=== PATIENT | female | born 1995 | race Caucasian/White ===

== ENCOUNTER 2017-04-21 08:21 | Inpatient (IN) | payer MEDICAID ==
[2017-04-21] VITALS (120 sets, daily range): BP systolic 51–162; BP diastolic 25–141; PULSE 63–153; RESP 16–20; TEMP 97.8–98.7
[~2017-04-21] VITALS: Ht 160 cm; Wt 94.3 kg
[2017-04-21] MEDS ORDERED: LIDOCAINE HCL 1% 50 ML VIAL INFIL PRN (10:15)
[2017-04-21] MEDS ORDERED: MINERAL OIL 10 ML VIAL TOPICAL PRN (10:15)
[2017-04-21] MEDS ORDERED: SODIUM CHLORID 0.9% 500 ML INJ 500 ML IV PRN (10:15)
[2017-04-21] MEDS ORDERED: LIDOCAINE HCL 1% 50 ML VIAL I-DERMAL PRN (10:15)
[2017-04-21] MEDS ORDERED: LACTATED RINGER'S 1000 ML INJ 1,000 ML IV PRN (10:15)
[2017-04-21] MEDS ORDERED: ceFAZolin 2 GM PREMIX 50 ML IV ONE (10:15)
[2017-04-21] MEDS ORDERED: CITRIC ACID-SODIUM CITRATE LIQ 30 ML UDC PO SCH (10:15)
[2017-04-21] MEDS ORDERED: OXYTOCIN 30 UNITS-500ML PREMIX 500 ML IV ONE (10:15)
[2017-04-21] MEDS ORDERED: SODIUM CHLOR 0.9% 1000 ML INJ 1,000 ML IV PRN (10:35)
[2017-04-21] MEDS: LACTATED RINGER'S 1000 ML INJ 1,000 ML IV SCH ×2 (11:05→17:54)
[2017-04-21 11:06] LABS: BACTERIA, URINE RARE /hpf; BLOOD, URINE TRACE (NEG); COMMENT (UR) CULT NOT INDICATED; CULTURE IF INDICATED CULT NOT INDICATED; GLUCOSE,URINE NEG (NEG); KETONE, URINE TRACE mg/dL (NEG); MUCUS URINE FEW /lpf (OCC); NITRITE,URINE NEG (NEG); PH, URINE 6.5 (5.0-8.5); SQUAMOUS EPITHELIAL CELL URINE 3 /hpf (0-5); URINE COLOR LIGHT-YELLOW (YELLW/STRAW)
[2017-04-21 11:17] LABS: AUTOMATED NEUTROPHIL # 10.9 TH/MM3 (1.8-7.7); BASOPHIL % 0.1 % (0.0-2.0); EOSINOPHIL % 0.2 % (0.0-4.0); HEMATOCRIT 36.5 % (35.0-46.0); HEMO FLAGS DIFF FINAL; LYMPH % 14.5 % (9.0-44.0); MEAN CELL VOLUME 84.8 FL (80.0-100.0); MEAN CORPUSCULAR HGB CONC 34.2 % (32.0-36.0); NEUT % 79.2 % (16.0-70.0); PLATELET COUNT 257 TH/MM3 (150-450); RED BLOOD COUNT 4.31 MIL/MM3 (4.00-5.30); RED CELL DISTRIBUTION WIDTH 14.5 % (11.6-17.2); WHITE BLOOD COUNT 13.8 TH/MM3 (4.0-11.0)
[2017-04-21] MEDS ORDERED: fentaNYL 2MCG-BUPIV 0.125% INJ 100 ML ONE ×3 (11:27→17:41)
--- NOTE | 2017-04-21 11:27 | HHI.HP ---
History & Physical H&P HPI HPI Chief Complaint Contractions Date Seen: Apr 21, 2017 Time Seen: 09:35 Travel History International Travel<30 Days: No Contact w/Intl Traveler<30Days: No Known Affected Area: No History of Present Illness HPI 21-year-old at 39/5 weeks gestation presenting for contractions. Began this morning, progressed in intensity and severity towards time of presentation , and currently they're about every 3-5 minutes and very strong. Described as lower pelvic pressure/pain. Denies vaginal bleeding, leakage of fluid. Feels positive movement. Denies chest pain, shortness of breath, fevers/chills, dysuria, nausea/vomiting. History (Limited) History Past Medical History Narrative Medical Intermittent asthma, but has not used albuterol inhaler for many years Obstetric History Obstetric History First Past Surgical History Surgical History: No Previous Surgery Family History Family History: Negative Social History Alcohol Use: No Tobacco Use: No Substance Abuse: No Allergies-Medications Allergies-Medications (Allergen,Severity, Reaction): Coded Allergies: Augmentin (Verified Allergy, Unknown, hives, 04/21/17) Penicillin (Verified Allergy, Unknown, 04/21/17) ROS Review of Systems Except as stated in HPI: all other systems reviewed are Neg Physical Exam Physical Exam Vital Signs Date Time Temp Pulse Resp B/P Pulse Ox O2 Delivery O2 Flow Rate FiO2 04/21/17 11:06 20 04/21/17 11:05 85 04/21/17 11:00 74 Narrative GENERAL: Well-nourished, well-developed patient. SKIN: Warm and dry. HEAD: Normocephalic and atraumatic. EYES: No scleral icterus. No injection or drainage. ENT: No nasal drainage noted. Mucous membranes pink. Airway patent. NECK: Supple, trachea midline. No JVD. CARDIOVASCULAR: Regular rate and rhythm without murmurs, gallops, or rubs. RESPIRATORY: Breath sounds equal bilaterally. No accessory muscle use. BREASTS: Bilateral exam showed no masses , no retractions, no nipple discharge. ABDOMEN/GI: Abdomen soft, non-tender, bowel sounds present, no rebound, no guarding GENITOURINARY: External Genitalia: intact and normal in appearance BUS glands: normal Cervix: midposition Dilatation: 3 Effacement: 80 Station: -2 Presentation: Vertex Membranes: Intact Uterine Contractions: Regular every 3-5 mins FHT's: Category: 1 Baseline: 120 Reactive: Y Variability: moderate Decels: N EXTREMITIES: No cyanosis or edema. BACK: Nontender without obvious deformity. No CVA tenderness. NEUROLOGICAL: Awake and alert. Motor and sensory grossly within normal limits. Five out of 5 muscle strength in all muscle groups. Normal speech. Data Data Data Vital Signs Reviewed: Yes Orders Ob (2e) Additional Admit Info (04/21/17 10:14) Admit To Inpatient (04/21/17 ) Vital Signs (Adult) .Per protocol (04/21/17 10:15) Activity Oob Ad April (04/21/17 10:15) Heart (04/21/17 10:15) Amnioinfusion (04/21/17 10:15) Urinary Catheter Management .ONCE (04/21/17 10:15) Diet Liquid (04/21/17 Lunch) Lactated Ringer's 1000 Ml Inj (Lr 1000 M (04/21/17 10:15) Lactated Ringer's 1000 Ml Inj (Lr 1000 M (04/21/17 10:15) Sodium Chlorid 0.9% 500 Ml Inj (Ns 500 M (04/21/17 10:15) Sodium Chlor 0.9% 1000 Ml Inj (Ns 1000 M (04/21/17 10:35) Lidocaine 1% Inj (50 Ml) (Xylocaine 1% I (04/21/17 10:15) Citric Acid-Sodium Citrate Liq (Bicitra (04/21/17 10:15) Fentanyl Inj (Fentanyl Inj) (04/21/17 10:15) Fentanyl Inj (Fentanyl Inj) (04/21/17 10:15) Cefazolin 2 Gm Premix (Ancef 2 Gm Premix (04/21/17 10:15) Cefazolin Inj (Ancef Inj) (04/21/17 15:00) Complete Blood Count With Diff (04/21/17 10:15) Hold Clot (04/21/17 10:15) Abo/Rh Blood Type (04/21/17 10:15) Urinalysis - C+S If Indicated (04/21/17 10:15) Resp Oxygen Non Rebreathe Mask (04/21/17 ) ^ Epidural / Intrathecal Infus (04/21/17 10:15) Oxytocin 30 Units-500ml Premix (Pitocin (04/21/17 10:15) Lidocaine 1% Inj (50 Ml) (Xylocaine 1% I (04/21/17 10:15) Light Mineral Oil (Muri-Lube Oil) (04/21/17 10:15) Inpatient Certification (04/21/17 ) Labs Laboratory Tests Test 04/21/17 04/21/17 08:35 10:37 Urine Color LIGHT-YELLOW Urine Turbidity CLEAR Urine pH 6.5 Urine Specific [place] 1.009 Urine Protein NEG Urine Glucose (UA) NEG Urine Ketones TRACE Urine Occult Blood TRACE Urine Nitrite NEG Urine Bilirubin NEG Urine Urobilinogen LESS THAN 2.0 Urine Leukocyte Esterase TRACE Urine RBC LESS THAN 1 Urine WBC 2 Urine Squamous Epithelial 3 Cells Urine Bacteria RARE Urine Mucus FEW Microscopic Urinalysis Comment CULT NOT INDICATED White Blood Count 13.8 Red Blood Count 4.31 Hemoglobin 12.5 Hematocrit 36.5 Mean Corpuscular Volume 84.8 Mean Corpuscular Hemoglobin 29.0 Mean Corpuscular Hemoglobin 34.2 Concent Red Cell Distribution Width 14.5 Platelet Count 257 Mean Platelet Volume 8.3 Neutrophils (%) (Auto) 79.2 Lymphocytes (%) (Auto) 14.5 Monocytes (%) (Auto) 6.0 Eosinophils (%) (Auto) 0.2 Basophils (%) (Auto) 0.1 Neutrophils # (Auto) 10.9 Lymphocytes # (Auto) 2.0 Monocytes # (Auto) 0.8 Eosinophils # (Auto) 0.0 Basophils # (Auto) 0.0 CBC Comment DIFF FINAL Differential Comment MDM [facility] Medical Record Reviewed: Yes Narrative Course / MDM 21-year-old at 39/5 weeks gestation in labor #1 IUP Category 1 tracing, reassuring - Continuous monitoring #2 GBS positive Intrapartum metabolic prophylaxis with cefazolin #3 labor Membrane is not ruptured, cervix dilated to 3 cm from 1 cm in office last week - Admit to labor and delivery - Patient desires epidural - Routine antepartum care dw Dr. Matos Diagnosis Diagnosis: Primary Impression: Normal labor Serg Mackey MD R1 Apr 21, 2017 11:27 Serg Mackey MD R1 Apr 21, 2017 11:27
[2017-04-21] MEDS ORDERED: OXYTOCIN 30 UNITS/NS 500ML PREMIX IV SCH (13:15)
[2017-04-21] MEDS ORDERED: MEASLES, MUMPS, RUBELLA VACCINE 0.5 ML VIAL SQ ONE (16:00)
[2017-04-21] MEDS ORDERED: DIPHTH/TETANUS/ACEL PERTUSSIS (BOOSTER) 0.5 ML VIAL/PFS IM ONE (16:00)
[2017-04-21] MEDS ORDERED: PENICILLIN G POT 5,000,000 UNITS/NS 100 ML(Mini-Bag Plus) IV ONE ×2 (17:00)
[2017-04-21] MEDS ORDERED: SODIUM CHLORIDE 0.9% FLUSH 10 ML FLUSH IV FLUSH PRN (19:45)
[2017-04-21] MEDS ORDERED: ALUMINUM/MAGNESIUM/SIMETH 30 ML CUP PO PRN (19:45)
[2017-04-21] MEDS ORDERED: ZOLPIDEM TARTRATE 5 MG TAB PO PRN (19:45)
[2017-04-21] MEDS ORDERED: ACETAMINOPHEN 325 MG TAB PO PRN (19:45)
[2017-04-21] MEDS ORDERED: ONDANSETRON ODT 4 MG TAB PO PRN (19:45)
[2017-04-21] MEDS ORDERED: DOCUSATE SODIUM 50 MG/SENNA 8.6 MG TAB PO PRN (19:45)
[2017-04-21] MEDS ORDERED: WITCH HAZEL 50%/GLYCERIN 12.5% 40 PAD JAR TOPICAL PRN (19:45)
[2017-04-21] MEDS ORDERED: BENZOCAINE 20% TOPICAL SPRAY 60 ML CAN TOPICAL PRN (19:45)
[2017-04-21] MEDS ORDERED: oxyCODONE/ACETAMINOPHEN 5 MG/325 MG TAB PO PRN (19:45)
--- NOTE | 2017-04-21 19:46 | PD.OB.DELI ---
Delivery Date: Apr 21, 2017 Anesthesia: Epidural Episiotomy: None Vaginal Delivery: Normal Presentation: Occiput anterior Nuchal Cord: None Delayed cord clamping (45 sec): Yes : Female One Minute : 9 Five Minute : 9 Weight: 3421g Placenta: Spontaneous delivery, Intact, 3 vessel cord Laceration: 1 deg (5 o'clock and 7 o'clock) Repair: Vicryl running Additional Information EBL 250cc Baby Kenna! Dottie Tran MD R2 Apr 21, 2017 19:46
[2017-04-21] MEDS ORDERED: PENICILLIN G POT 2,500,000 UNITS/NS 100 ML IV SCH ×2 (21:00)
[2017-04-21] MEDS: SODIUM CHLORIDE 0.9% FLUSH 10 ML FLUSH IV FLUSH SCH (21:00)
[2017-04-21] MEDS: IBUPROFEN 600 MG TAB PO PRN (21:55)
[2017-04-21] MEDS: oxyCODONE/ACETAMINOPHEN 5 MG/325 MG TAB PO PRN (21:55)
[2017-04-22] MEDS: oxyCODONE/ACETAMINOPHEN 5 MG/325 MG TAB PO PRN ×3 (05:09→21:16)
[2017-04-22] MEDS: IBUPROFEN 600 MG TAB PO PRN ×3 (05:10→21:15)
--- NOTE | 2017-04-22 07:59 | HHI.OB ---
Subjective Post Day: 1 Remarks Doing well, pain is controlled. Bleeding is fine. Taking motrin and percocet Objective Vitals/I&O Vital Signs Date Time Temp Pulse Resp B/P Pulse Ox O2 Delivery O2 Flow Rate FiO2 04/21/17 22:43 98.7 88 16 98/62 04/21/17 22:20 18 04/21/17 22:20 98.3 04/21/17 22:16 96 130/69 04/21/17 22:05 18 04/21/17 22:01 104 114/65 04/21/17 21:50 16 04/21/17 21:48 70 118/71 04/21/17 21:46 51/25 04/21/17 21:46 102 04/21/17 21:02 18 04/21/17 21:01 78 111/59 04/21/17 20:50 18 04/21/17 20:45 93 106/54 04/21/17 20:30 131 104/76 04/21/17 20:20 18 04/21/17 20:15 116 114/81 04/21/17 20:05 18 04/21/17 20:00 115 115/69 04/21/17 20:00 98.3 18 04/21/17 19:58 113 114/89 04/21/17 19:25 150 04/21/17 19:20 153 04/21/17 19:15 123 04/21/17 19:05 128 04/21/17 19:00 122 04/21/17 18:45 18 04/21/17 18:40 130 04/21/17 18:35 131 04/21/17 18:30 135 04/21/17 18:30 132 115/63 04/21/17 18:15 20 04/21/17 18:10 127 04/21/17 18:05 130 04/21/17 18:00 128 115/54 04/21/17 18:00 132 04/21/17 17:58 18 04/21/17 17:55 128 04/21/17 17:50 129 04/21/17 17:45 131 04/21/17 17:30 138 04/21/17 17:30 142 128/75 04/21/17 17:25 129 04/21/17 17:20 121 04/21/17 17:15 137 7/6/17 17:15 135 04/21/17 17:10 127 04/21/17 17:10 128 04/21/17 17:10 127 04/21/17 17:05 138 04/21/17 17:05 141 04/21/17 17:00 114 04/21/17 17:00 111 04/21/17 17:00 111 141/72 04/21/17 16:29 98.4 04/21/17 16:15 91 04/21/17 16:15 94 04/21/17 16:01 93 111/63 04/21/17 16:00 99 04/21/17 16:00 113 04/21/17 15:40 133 04/21/17 15:40 121 04/21/17 15:35 93 04/21/17 15:35 98 04/21/17 15:31 94 124/69 04/21/17 15:30 100 04/21/17 15:30 89 04/21/17 15:25 95 04/21/17 15:25 105 04/21/17 15:20 91 04/21/17 15:20 89 04/21/17 15:15 107 04/21/17 15:15 107 04/21/17 15:10 87 04/21/17 15:10 95 04/21/17 15:05 99 04/21/17 15:05 105 04/21/17 15:00 101 04/21/17 15:00 97 04/21/17 15:00 97 124/75 04/21/17 14:55 104 04/21/17 14:55 100 04/21/17 14:50 71 04/21/17 14:50 74 04/21/17 14:45 79 04/21/17 14:45 84 04/21/17 14:40 66 04/21/17 14:40 67 04/21/17 14:35 63 04/21/17 14:35 66 04/21/17 14:31 64 113/43 04/21/17 14:30 80 04/21/17 14:30 79 04/21/17 14:25 74 04/21/17 14:25 75 04/21/17 14:20 94 04/21/17 14:20 93 04/21/17 14:15 69 04/21/17 14:15 65 04/21/17 14:10 76 04/21/17 14:10 71 04/21/17 14:05 78 04/21/17 14:05 77 04/21/17 14:01 68 117/62 04/21/17 14:00 68 04/21/17 14:00 67 04/21/17 13:55 66 04/21/17 13:55 69 04/21/17 13:54 97.8 04/21/17 13:50 76 04/21/17 13:50 80 04/21/17 13:45 68 04/21/17 13:45 68 04/21/17 13:40 17 04/21/17 13:35 66 04/21/17 13:35 66 04/21/17 13:31 68 118/58 04/21/17 13:30 72 04/21/17 13:30 66 04/21/17 13:21 67 128/59 04/21/17 13:20 88 04/21/17 13:20 88 04/21/17 13:16 77 115/60 04/21/17 13:15 102 04/21/17 13:15 91 04/21/17 13:10 99 04/21/17 13:10 103 107/68 04/21/17 13:10 103 04/21/17 13:06 98 121/58 04/21/17 13:05 106 04/21/17 13:05 103 04/21/17 13:01 71 113/56 04/21/17 13:00 89 117/63 04/21/17 13:00 83 04/21/17 13:00 81 04/21/17 12:55 92 04/21/17 12:55 162/141 04/21/17 12:55 79 04/21/17 12:51 112 04/21/17 12:51 152/117 04/21/17 12:50 77 04/21/17 12:50 86 04/21/17 12:46 137/73 17 12:46 98 04/21/17 12:45 92 04/21/17 12:45 90 04/21/17 12:41 95 121/70 17 12:40 100 04/21/17 12:40 105 04/21/17 12:36 90 18 115/60 04/21/17 12:35 108 04/21/17 12:35 114 04/21/17 12:31 140 111/92 04/21/17 12:30 68 04/21/17 12:30 75 04/21/17 12:26 78 113/94 04/21/17 12:25 93 04/21/17 12:25 93 04/21/17 12:21 67 121/63 04/21/17 12:20 87 04/21/17 12:20 87 04/21/17 12:16 78 108/59 04/21/17 12:15 83 04/21/17 12:15 83 04/21/17 12:11 93 127/51 04/21/17 12:10 87 04/21/17 12:10 87 04/21/17 12:06 89 109/51 04/21/17 12:05 94 04/21/17 12:05 95 04/21/17 12:01 100 130/59 04/21/17 12:00 88 04/21/17 12:00 99 04/21/17 11:58 104 130/73 04/21/17 11:56 102 112/73 04/21/17 11:55 102 04/21/17 11:52 88 126/77 04/21/17 11:51 129 86/25 04/21/17 11:50 81 04/21/17 11:45 104 04/21/17 11:06 20 04/21/17 11:05 85 04/21/17 11:00 74 Objective Remarks GENERAL: Well-nourished, well-developed patient. CARDIOVASCULAR: Regular rate and rhythm without murmurs, gallops, or rubs. RESPIRATORY: Breath sounds equal bilaterally. No accessory muscle use. ABDOMEN/GI: Abdomen soft, non-tender. Fundus: Firm, non-tender at umbilicus. GENITOURINARY: Light to moderate bleeding. EXTREMITIES: No cyanosis or edema, non-tender, without signs of DVT. Medications and IVs Current Medications Medications (Trade) Dose Ordered Sig/Kiara Route Start Time Stop Time Status Last Admin (NS Flush) 2 ml BID IV FLUSH 04/21/17 21:00 (NS Flush) 2 ml UNSCH PRN IV FLUSH 04/21/17 19:45 (Tylenol) 650 mg Q4H PRN PO 04/21/17 19:45 (Motrin) 600 mg Q6H PRN PO 04/21/17 19:45 04/22/17 05:10 (Percocet 5-325 Mg) 1 tab Q4H PRN PO 04/21/17 19:45 04/22/17 05:09 (Percocet 5-325 Mg) 2 tab Q4H PRN PO 04/21/17 19:45 (Americaine 20% Top Spr) 1 spray Q4H PRN TOPICAL 04/21/17 19:45 04/21/17 22:46 (Tucks Pads) 1 applic QID PRN TOPICAL 04/21/17 19:45 04/21/17 22:46 (Radha-Colace) 2 tab Q12H PRN PO 04/21/17 19:45 (Ambien) 5 mg HS PRN PO 04/21/17 19:45 (Mag-Al Plus Susp Liq) 15 ml Q8H PRN PO 04/21/17 19:45 (Zofran Odt) 4 mg Q6H PRN PO 04/21/17 19:45 Assessment/Plan Assessment and Plan PPD#1 Doing well Routine care. Vineet Matos MD Apr 22, 2017 07:59
[2017-04-22] MEDS ORDERED: IBUP-232 PO (08:01)
[2017-04-22] MEDS ORDERED: OXYC1TAB63 PO (08:01)
[2017-04-22 08:30] VITALS: BP 104/49; PULSE 71; RESP 16; TEMP 98.3
--- NOTE | 2017-04-22 09:14 | HHI.DCPOC ---
Discharge Care Plan Diagnosis: (1) Normal vaginal delivery Your Health Problems Are: Vaginal delivery Report Symptoms to Your Doctor -Temperature above 100.5 degrees -Redness, of incision or excessive or foul smelling drainage -Unusual pain or calf pain -Increased vaginal bleeding -Painful or difficulty urinating -Feelings of extreme sadness or anxiety after 2 weeks Goals to Promote Your Health * To prevent worsening of your condition and complications * To maintain your health at the optimal level Directions to Meet Your Goals Take your medications as prescribed Follow your dietary instruction Follow activity as directed Ensure plenty of rest for recovery Drink fluids for hydration Keep your appointments as scheduled Take your immunizations and boosters as scheduled If your symptoms worsen call your PCP, if no PCP go to Urgent Care Center or Emergency Room Smoking is Dangerous to Your Health. Avoid second hand smoke Call the 24-hour crisis hotline for domestic abuse at Susan Davis Apr 22, 2017 09:14
--- NOTE | 2017-04-22 09:20 | HHI.DS ---
Admission Date Apr 21, 2017 at 10:17 Discharge Date: Apr 22, 2017 Admitting Diagnosis 39 WEEK LABOR Diagnosis: (1) Normal vaginal delivery Diagnosis: Principal Delivery Date: Apr 21, 2017 Vaginal Delivery: Normal Infant: Female Brief History 21-year-old at 39/5 weeks gestation presenting for contractions. Began this morning, progressed in intensity and severity towards time of presentation , and currently they're about every 3-5 minutes and very strong. Described as lower pelvic pressure/pain. Denies vaginal bleeding, leakage of fluid. Feels positive movement. Denies chest pain, shortness of breath, fevers/chills, dysuria, nausea/vomiting. Hospital Course 39 WEEK LABOR ROUTINE CARE Pt Condition on Discharge: Good Discharge Disposition: Discharge Home Discharge Instructions Diet Instructions: As Tolerated, No Restrictions Additional Diet Instructions: Drink at least 8 - 16 oz bottles of water a day Activities You Can Perform: Shower Only-No Bath, Sitz Bath Activities to Avoid: Lifting/Bending, Sexual Activity Additional Activity Instruc.: No driving until off pain medications Do not lift anything heavier than your baby in an infant carrier Follow up Referrals: NATIONAL SECRETARY - 2 Weeks @ [facility] New Medications: Ibuprofen (Ibuprofen) 600 Mg Tab 600 MG PO Q6H Pain Management #30 Ref 1 TAB Oxycodone-Acetaminophen (Oxycodone-Acetaminophen) 5-325 mg Tab 1 TAB PO Q4H moderate pain #12 TAB Susan Davis Apr 22, 2017 09:20
[2017-04-22] MEDS: SODIUM CHLORIDE 0.9% FLUSH 10 ML FLUSH IV FLUSH SCH (21:00)
[2017-04-23 08:00] VITALS: BP 111/57; PULSE 73; RESP 16; TEMP 98.5
[2017-04-23] MEDS: IBUPROFEN 600 MG TAB PO PRN ×2 (08:27→14:33)
[2017-04-23] MEDS: oxyCODONE/ACETAMINOPHEN 5 MG/325 MG TAB PO PRN ×2 (08:28→14:33)
== END 2017-04-23 18:53 | disposition home or self-care (01) | DRG 775 ==
LOC: HOBED 08:21 → H2EA 10:17 → H1EA 22:28
PROVIDERS: ADMIT Obstetrics & Gynecology; ATTEND Obstetrics & Gynecology
PROC: 10E0XZZ Delivery of Products of Conception, External Approach (ICD-10-PCS; principal; 2017-04-21)
PROC: 0HQ9XZZ Repair Perineum Skin, External Approach (ICD-10-PCS; 2017-04-21)
PROC: 00HU33Z Insertion of Infusion Device into Spinal Canal, Percutaneous Approach (ICD-10-PCS; 2017-04-21)
PROC: 3E0R3CZ (ICD-10-PCS; 2017-04-21)
DX: O99.52 Diseases of the respiratory system complicating childbirth (principal); J45.20 Mild intermittent asthma, uncomplicated; F41.9 Anxiety disorder, unspecified; Z37.0 Single live birth; O70.0 First degree perineal laceration during delivery; O99.344 Other mental disorders complicating childbirth; Z3A.39 39 weeks gestation of pregnancy
CPT/HCPCS: 81001; 85025; 86900; 86901; 90715; 99285; J0690; J2540; J2590; J7120